=== PATIENT | female | born 1995 | race Caucasian/White ===

== ENCOUNTER → 2016-09-28 | Outpatient (CLI) | payer OTHER ==
[~2016-09-28] MED LIST: AMOXICILLIN500 M2 PO; AMOXICILLIN500 MG PO; BENADRYL ALLERG25 M5 PO; BENADRYL25 M2 PO; BENADRYL25 MG PO; DEPO PROVER150 MG/M1 IM; ELIMITE 5%60 GM T; FLONASE ALLERG9.9 ML NAS; KENALOG0.1% TP; LAMICTAL25 MG PO; MEDROL DOSEPAK4 MG PO; NAPROSYN500 MG PO; NAPROXEN500 M1 PO; NICOTINE TRANSD1 TDM TD; NKHM; NORCO 5-325 TA1 EACH PO; NOVAPLUS V0.09 MG/Ac INH; PENICILLIN-VK500 M1 PO; PEPCID20 MG PO; PREDNISONE10 MG PO; PREDNISONE20 M1 PO; ROBITUSSIN AC 110 ML PO; ROBITUSSIN DM 105 ML PO; WELLBUTRIN100 MG PO; ZITHROMAX Z PA250 MG PO; ZYRTEC10 MG PO
== END | disposition home or self-care (01) ==
LOC: CANPRECLI → ORTHO 01:52
DX: Z53.9 Procedure and treatment not carried out, unspecified reason (principal)

== ENCOUNTER → 2016-10-01 | Outpatient (CLI) | payer OTHER | END | disposition home or self-care (01) | LOC: US 09:46 | DX: R10.84 Generalized abdominal pain (principal) ==

== ENCOUNTER → 2016-11-30 | Day surgery (SDC) | payer OTHER ==
[~2016-11-30] VITALS: Ht 154.9 cm; Wt 88.0 kg
[~2016-11-30] MED LIST changes: +BUPROPION HCL150 M1 PO; +FERROUS GLUCON324 M2 PO; +OMEPRAZOLE40 MG PO; +TRAZODONE50 MG PO; +VITAMIN D-32000 UNI1 PO
--- NOTE | ~2016-11-30 | O ---
[place], [place] OPERATIVE NOTE NAME: STEFANIA MIRELES UNIT #: [id number] ROOM: DOCTOR[facility] BIRTH[facility] [birth year] DOS: HISTORY OF PRESENT ILLNESS: The patient a 21-year-old with a chief complaint of epigastric abdominal pain, not feeling well in her stomach, sensation of nausea and also complain of diarrhea bowel movements. Ultrasound of the gallbladder has been unremarkable. ALLERGIES: No known medication. FAMILY HISTORY: Noncontributory. PAST SURGICAL HISTORY: Unremarkable. PAST MEDICAL HISTORY: Bipolar, depression, anxiety. PROCEDURE: Today's procedure part of investigation is panendoscopy plus biopsy and photographic series and colonoscopy. PROCEDURE #1 PREMEDICATION: Versed and Diprivan. SCOPE: Olympus forward-viewing gastroscope Q10 video. REPORT: After putting the patient in the left lateral position and after application of lubricant to the scope, the scope was introduced. Thereafter, under direct visualization, I advanced through the length of esophagus without difficulty into gastric pouch. Large volume of bile reflux matter was suctioned out. Multiple punctated small ulcerations in antrum in a linear form was noticed, photographed, biopsied from margin of one was obtained for H. pylori. Duodenal bulb, second and third part within normal limits. Scope was withdrawn along the lesser curvature, GI reflexion of the scope reveals cardia to be benign. The patient extubated, tolerated procedure well. IMPRESSION: Multiple small antral ulceration, bile reflux gastritis. PLAN AND DISCUSSION: The patient needs to be on omeprazole 40 mg daily and meanwhile, we are going to proceed with the colonoscopic assessment of her complaint of change in bowel habit to diarrhea. We will proceed with colonoscopy. PROCEDURE #2 INDICATIONS: A 21-year-old patient who presented with chief complaint of change in bowel habit, abdominal distress, complaining of diarrhea. PROCEDURE: Today's procedure part of investigation is colonoscopy. PREMEDICATION: Versed and Diprivan. [place], [place] OPERATIVE NOTE NAME: STEFANIA MIRELES UNIT #: [id number] ROOM: DOCTOR: [facility] BIRTHDATE: [birth year] SCOPE: Olympus forward viewing colonoscope 10L video. REPORT: After putting the patient in left lateral position and after application of lubricant to rectal pouch and digital examination, scope was introduced under direct visualization, I advanced through the length of colon with difficulty. Difficulty being retained solid stool in her colon. I did not find any evidence of colitis up to about hepatic flexure where I negotiated the scope and retention of the stool beyond this point does not allow negotiation of the scope safely. Therefore, scope withdrawn, photographic series obtained. The patient tolerated the procedure well. IMPRESSION: Colonoscopy with solid stool retention. Therefore, I do not believe that she has a true functional diarrhea. Therefore, I have advised dietary modification, avoiding excessive fatty food. I have specifically asked her to stop drinking 4 bottles of Mountain Dew per day. She does not like the advice; however, that would be preventing her healing of the gastric ulcers that she has as well is assisting her obesity to continue on a accelerating phase. Dietary modification organize, omeprazole 40 mg daily. We will let her return in our office for further modification. I thank you very much indeed for your kind referral. KEEGAN NELSON MD CM:OPRECORD:OPERATIVE NOTE [id number] KEEGAN NELSON MD 11/30/[id number] interface
[2016-11-30 13:41] VITALS: BP 126/74
[2016-11-30 14:55] VITALS: BP 124/75
[2016-11-30 15:10] VITALS: BP 127/52
[2016-11-30 15:25] VITALS: BP 122/70
== END | disposition home or self-care (01) ==
LOC: SDC 11-28 11:00
DX: K29.50 Unspecified chronic gastritis without bleeding (principal); K21.9 Gastro-esophageal reflux disease without esophagitis; K25.9 Gastric ulcer, unspecified as acute or chronic, without hemorrhage or perforation; I10 Essential (primary) hypertension; J45.909 Unspecified asthma, uncomplicated; F41.9 Anxiety disorder, unspecified; F32.9 Major depressive disorder, single episode, unspecified; Z82.49 Family history of ischemic heart disease and other diseases of the circulatory system; Z80.9 Family history of malignant neoplasm, unspecified; F17.210 Nicotine dependence, cigarettes, uncomplicated; Z79.899 Other long term (current) drug therapy

== ENCOUNTER → 2017-05-03 | Outpatient (CLI) | payer SELFPAY | END | disposition home or self-care (01) | LOC: ORTHO 03:34 | DX: M22.42 Chondromalacia patellae, left knee (principal); M23.92 Unspecified internal derangement of left knee ==

== ENCOUNTER 2017-08-07 12:23 | Emergency (ER) | payer OTHER ==
[~2017-08-07] VITALS: Ht 154.9 cm; Wt 88.5 kg
[2017-08-07] MEDS ORDERED: PREDNISONE20 M1 PO (12:40)
[2017-08-07] MEDS ORDERED: ZITHROMAX250 MG PO (12:40)
== END 2017-08-07 12:43 | disposition home or self-care (01) ==
LOC: ED 12:23
DX: J20.9 Acute bronchitis, unspecified (principal); I10 Essential (primary) hypertension; Z79.899 Other long term (current) drug therapy

== ENCOUNTER → 2017-09-06 | Outpatient (CLI) | payer OTHER ==
[~2017-09-06] MED LIST changes: +ZITHROMAX250 MG PO
== END ==
LOC: MRI 14:00
DX: S83.207D Unspecified tear of unspecified meniscus, current injury, left knee, subsequent encounter (principal); X58.XXXD Exposure to other specified factors, subsequent encounter

== ENCOUNTER 2017-10-16 21:28 | Emergency (ER) | payer OTHER ==
[~2017-10-16] VITALS: Ht 154.9 cm; Wt 86.2 kg
[2017-10-16] MEDS ORDERED: FLONASE ALLERG9.9 ML NAS (22:07)
[2017-10-16] MEDS ORDERED: ZITHROMAX250 MG PO (22:07)
[2017-10-16] MEDS ORDERED: DELTASONE20 M1 PO (22:07)
== END 2017-10-16 23:55 | disposition home or self-care (01) ==
LOC: ED 21:28
DX: J06.9 Acute upper respiratory infection, unspecified (principal); J45.901 Unspecified asthma with (acute) exacerbation; F17.200 Nicotine dependence, unspecified, uncomplicated; Z79.899 Other long term (current) drug therapy

== ENCOUNTER 2017-11-08 07:43 | Emergency (ER) | payer OTHER ==
[~2017-11-08] VITALS: Wt 88.5 kg
[~2017-11-08 07:43] MED LIST changes: +DELTASONE20 M1 PO
[2017-11-08] MEDS ORDERED: FLUTICASONE PRO15 GM NAS (07:59)
== END 2017-11-08 09:11 | disposition home or self-care (01) ==
LOC: ED 07:43
DX: J02.9 Acute pharyngitis, unspecified (principal); R05 Cough; R51 Headache; M54.2 Cervicalgia; F17.200 Nicotine dependence, unspecified, uncomplicated; Z79.899 Other long term (current) drug therapy

== ENCOUNTER → 2018-09-29 | Outpatient (CLI) | payer OTHER ==
[~2018-09-29] MED LIST changes: +FLUTICASONE PRO15 GM NAS; +PRENATAL ONE D1 EACH PO
== END | disposition home or self-care (01) ==
LOC: LAB 14:37
DX: E11.9 Type 2 diabetes mellitus without complications (principal); A69.20 Lyme disease, unspecified

== ENCOUNTER 2018-12-26 17:36 | Emergency (ER) | payer OTHER ==
[~2018-12-26] VITALS: Ht 154.9 cm; Wt 90.7 kg
[2018-12-26] MEDS ORDERED: TESSALON PERLE100 M1 PO (18:41)
[2018-12-26] MEDS ORDERED: IBUPROFEN600 MG PO (18:41)
[2018-12-26] MEDS ORDERED: FLONASE ALLERG9.9 ML NAS (18:41)
== END 2018-12-26 18:48 | disposition home or self-care (01) ==
LOC: ED 17:36
DX: J06.9 Acute upper respiratory infection, unspecified (principal); J02.9 Acute pharyngitis, unspecified; I10 Essential (primary) hypertension; K21.9 Gastro-esophageal reflux disease without esophagitis; J45.909 Unspecified asthma, uncomplicated

== ENCOUNTER 2019-02-09 17:37 | Emergency (ER) | payer OTHER ==
[~2019-02-09] VITALS: Ht 154.9 cm; Wt 90.7 kg
[~2019-02-09 17:37] MED LIST changes: +IBUPROFEN600 MG PO; +TESSALON PERLE100 M1 PO
[2019-02-09] MEDS ORDERED: AMOXICILLIN500 M2 PO (20:04)
== END 2019-02-09 20:30 | disposition home or self-care (01) ==
LOC: ED 17:37
DX: J02.9 Acute pharyngitis, unspecified (principal); I10 Essential (primary) hypertension; K21.9 Gastro-esophageal reflux disease without esophagitis; J45.909 Unspecified asthma, uncomplicated; F17.200 Nicotine dependence, unspecified, uncomplicated; Z79.899 Other long term (current) drug therapy

== ENCOUNTER 2019-09-18 23:42 | Emergency (ER) | payer OTHER ==
[~2019-09-18] VITALS: Ht 154.9 cm; Wt 80.7 kg
[2019-09-19] MEDS ORDERED: AUGMENTIN 875875 MG PO (01:30)
== END 2019-09-19 01:41 | disposition home or self-care (01) ==
LOC: ED 23:42
DX: S61.412A Laceration without foreign body of left hand, initial encounter (principal); S60.222A Contusion of left hand, initial encounter; I10 Essential (primary) hypertension; J45.909 Unspecified asthma, uncomplicated; K21.9 Gastro-esophageal reflux disease without esophagitis; W22.8XXA Striking against or struck by other objects, initial encounter; Y93.89 Activity, other specified; Y92.89 Other specified places as the place of occurrence of the external cause; Y99.8 Other external cause status

== ENCOUNTER → 2019-11-02 | Outpatient (CLI) | payer OTHER ==
[~2019-11-02] MED LIST changes: +AUGMENTIN 875875 MG PO
== END | disposition home or self-care (01) ==
LOC: LAB 14:29 → US 14:29
PROVIDERS: ATTEND Nurse Practitioner Women's Health
DX: Z33.1 Pregnant state, incidental (principal)

== ENCOUNTER → 2020-03-01 | Outpatient (CLI) | payer OTHER ==
[2020-03-01 10:52] LABS: BASO % 0.4 % (0.0-1.0); EOS # 0.2 10*3/uL (0.0-0.4); EOS % 1.5 % (1.0-4.0); HEMATOCRIT 38.1 % (37.0-47.0); LYMPH # 3.1 10*3/uL (1.3-4.4); LYMPH % 29.5 % (27.0-41.0); MEAN CELL VOLUME 81.9 fl (81.0-99.0); MEAN CORPUSCULAR HGB 25.4 pg (27.0-31.0); MEAN PLATELET VOLUME 11.2 fl (9.6-12.3); MONO # 0.7 10*3/uL (0.1-1.0); MONO % 6.7 % (3.0-9.0); NEUT # 6.4 10*3/uL (2.3-7.9); NEUT % 61.6 % (47.0-73.0); PLATELET COUNT AUTOMATED 319 10*3/uL (130-400); RED BLOOD COUNT 4.65 10*6/uL (4.10-5.10); RED CELL DISTRI WIDTH 15.2 % (0-14.5); WHITE BLOOD COUNT 10.5 10*3/uL (4.8-10.8)
[2020-03-01 11:17] LABS: ALBUMIN 3.6 gm/dl (3.1-4.5); ALKALINE PHOSPHATASE 78 U/L (45-117); BUN 10 mg/dl (7-24); CHLORIDE 104 mmol/L (98-107); CREATININE 0.82 mg/dL (0.55-1.02); POTASSIUM 3.4 mmol/L (3.5-5.1); SGOT/AST 11 IU/L (3-35); SGPT/ALT 18 U/L (12-78); SODIUM 139 mmol/L (136-145); TOTAL PROTEIN 7.5 gm/dL (6.4-8.2)
== END | disposition home or self-care (01) ==
LOC: LAB 09:45
PROVIDERS: ATTEND Physician Assistant
DX: Z51.81 Encounter for therapeutic drug level monitoring (principal); Z79.899 Other long term (current) drug therapy

== ENCOUNTER 2020-03-24 10:39 | Emergency (ER) | payer OTHER ==
[~2020-03-24] VITALS: Ht 154.9 cm; Wt 83.0 kg
== END 2020-03-24 11:16 | disposition home or self-care (01) ==
LOC: ED 10:39
DX: M79.642 Pain in left hand (principal); R20.0 Anesthesia of skin; I10 Essential (primary) hypertension; K21.9 Gastro-esophageal reflux disease without esophagitis; J45.909 Unspecified asthma, uncomplicated; F41.9 Anxiety disorder, unspecified; F32.9 Major depressive disorder, single episode, unspecified; Z79.899 Other long term (current) drug therapy

== ENCOUNTER 2020-11-27 14:26 | Emergency (ER) | payer OTHER ==
[~2020-11-27] VITALS: Ht 154.9 cm; Wt 85.7 kg
== END 2020-11-27 14:56 | disposition home or self-care (01) ==
LOC: ED 14:26
DX: Z32.01 Encounter for pregnancy test, result positive (principal); Z3A.01 Less than 8 weeks gestation of pregnancy

== ENCOUNTER 2020-12-02 10:26 | Emergency (ER) | payer OTHER ==
[~2020-12-02] VITALS: Ht 152.4 cm; Wt 74.8 kg
[2020-12-02] MEDS ORDERED: OFLOXACIN 5 ML5 ML OP (11:22)
[2020-12-02] MEDS ORDERED: AMOXICILLIN875 MG PO (11:22)
== END 2020-12-02 11:29 | disposition home or self-care (01) ==
LOC: ED 10:26
DX: H60.311 Diffuse otitis externa, right ear (principal); J06.9 Acute upper respiratory infection, unspecified; F17.200 Nicotine dependence, unspecified, uncomplicated

== ENCOUNTER → 2020-12-27 | Outpatient (CLI) | payer OTHER ==
[~2020-12-27] MED LIST changes: +AMOXICILLIN875 MG PO; +OFLOXACIN 5 ML5 ML OP
[2020-12-27 08:46] LABS: BASO % 0.3 % (0.0-1.0); EOS # 0.1 10*3/uL (0.0-0.4); EOS % 0.7 % (1.0-4.0); HEMATOCRIT 34.4 % (37.0-47.0); LYMPH # 2.2 10*3/uL (1.3-4.4); LYMPH % 21.3 % (27.0-41.0); MEAN CELL VOLUME 78.5 fl (81.0-99.0); MEAN CORPUSCULAR HGB 25.3 pg (27.0-31.0); MEAN CORPUSCULAR HGB CONC 32.3 g/dl (33.0-37.0); MEAN PLATELET VOLUME 11.7 fl (9.6-12.3); MONO # 0.7 10*3/uL (0.1-1.0); MONO % 7.1 % (3.0-9.0); NEUT # 7.2 10*3/uL (2.3-7.9); NEUT % 70.2 % (47.0-73.0); PLATELET COUNT AUTOMATED 252 10*3/uL (130-400); RED BLOOD COUNT 4.38 10*6/uL (4.10-5.10); RED CELL DISTRI WIDTH 17.5 % (0-14.5); WHITE BLOOD COUNT 10.3 10*3/uL (4.8-10.8)
== END | disposition home or self-care (01) ==
LOC: LAB 07:21 → US 07:30
PROVIDERS: ATTEND Obstetrics & Gynecology
DX: Z34.01 Encounter for supervision of normal first pregnancy, first trimester (principal); Z3A.10 10 weeks gestation of pregnancy

== ENCOUNTER 2022-05-29 08:42 | Emergency (ER) | payer OTHER ==
[2022-05-29 09:32] LABS: BILIRUBIN Negative (Negative); BLOOD Negative (Negative); CLARITY Clear (Clear); COLOR Yellow (Yellow); GLUCOSE Negative (Negative); KETONE Negative (Negative); LEUKO ESTERASE Negative (Negative); NITRITE Negative (Negative); PH 7.5 (4.5-8.0); UROBILINOGEN 0.2 E.U./dl (0.0-1.0)
[2022-05-29 09:50] LABS: BACTERIA 2+; WBC 0-2 wbc/hpf (0-5)
[2022-05-29] MEDS ORDERED: MACROBID100 M1 PO ×2 (10:12→10:25)
== END 2022-05-29 10:23 | disposition home or self-care (01) ==
LOC: ED 08:42
PROVIDERS: Internal Medicine
DX: N39.0 Urinary tract infection, site not specified (principal); R11.0 Nausea; I10 Essential (primary) hypertension; K21.9 Gastro-esophageal reflux disease without esophagitis; J45.909 Unspecified asthma, uncomplicated; F32.A Depression, unspecified; F41.9 Anxiety disorder, unspecified; Z98.890 Other specified postprocedural states